=== PATIENT | female | born 1965 | race Caucasian/White ===

== ENCOUNTER 2017-10-11 14:36 | Inpatient (IN) | payer MEDICARE, MEDICAID ==
[~2017-10-11] VITALS: Ht 162.6 cm; Wt 74.4 kg
[2017-10-11] MEDS ORDERED: TRICOR54 MG ORAL (14:47)
[2017-10-11] MEDS ORDERED: SEROQUEL100 MG ORAL (14:47)
[2017-10-11] MEDS ORDERED: ATORVASTATIN CA20 MG ORAL (14:47)
[2017-10-11] MEDS ORDERED: LEVOTHYROXINE75 MCG ORAL (14:47)
[2017-10-11] MEDS ORDERED: GABAPENTIN300 MG ORAL (14:47)
[2017-10-11] MEDS ORDERED: PROPRANOLOL HCL10 MG ORAL (14:47)
[2017-10-11] MEDS ORDERED: ZYPREXA5 MG ORAL (14:47)
[2017-10-11] MEDS ORDERED: OXYBUTYNIN CHLOR5 M1 ORAL (14:47)
[2017-10-11] MEDS ORDERED: BENZTROPINE ME0.5 MG PO (14:47)
[2017-10-11] MEDS ORDERED: DEPAKOTE ER500 MG ORAL (14:47)
[2017-10-11] MEDS ORDERED: METOPROLOL SUCC25 MG ORAL (14:47)
[2017-10-11] MEDS ORDERED: PHENYTOIN SODI100 MG ORAL (14:47)
[2017-10-11] MEDS ORDERED: LORazepam 1mg tab ORAL ONE (15:00)
--- NOTE | 2017-10-11 15:10 | Emergency Room Report ---
History of Present Illness General Chief Complaint: Abdominal Pain Source: Patient, EMS Present Illness HPI Patient presents via BLS after having a seizure earlier today. She is on multiple medications for seizures including gabapentin, Dilantin, Depakote. She 's had a stroke in the past. She complains about a headache that's chronic and abdominal pain which is also chronic. She rates these 5-6 out of 10. She denies taking any medication for them at this time. She denies vomiting, diarrhea, dysuria. She has chronic weakness of the right side. No fevers, chills, dysuria, rashes, extremity pain. She is on seroquel and denies SI or HI. She was sent for evaluation by her psychiatrist for the headache and seizures. Prior craniotomy. Allergies: Coded Allergies: PENICILLINS (Verified Allergy, Unknown, 10/11/17) Patient History Past Medical History: see triage record Social History: Reports: smoking, drug use - see tox Social History Narrative assisted living Reviewed Nursing Documentation: PMH: Agreed; PSxH: Agreed Nursing Documentation-PMH Past Medical History: No History, Except For Hx Hypertension: Yes Hx Seizures: Yes Review of Systems All Other Systems: negative except mentioned in HPI Physical Exam Vital Signs Date Time Temp Pulse Resp B/P (MAP) Pulse Ox O2 Delivery O2 Flow Rate FiO2 10/11/17 14:39 97.9 67 14 118/74 95 Room Air 97.9 Sp02 EP Interpretation: reviewed, normal General Appearance: well appearing, no apparent distress, GCS 15 Head: normocephalic, other - craniotomy L Eyes: bilateral eye normal inspection, bilateral eye PERRL, bilateral eye EOMI ENT: moist mucus membranes Neck: supple, no meningismus Respiratory: lungs clear, normal breath sounds Cardiovascular #1: regular rate, rhythm Cardiovascular #2: 2+ radial (R) Gastrointestinal: normal inspection, normal bowel sounds, non tender, no mass, non-distended Musculoskeletal: back normal, gait/station normal, normal range of motion, other - Contractures right hand Neurologic: alert, oriented x3, DTRs symmetric, sensory intact, speech normal, motor weakness - Right arm and right leg., other - Able to ambulate with assistance however right leg has chronic weakness Psychiatric: mood/affect normal Skin: normal inspection, warm/dry Medical Decision Making Diagnostic Impression: Primary Impression: Uncontrolled seizures Qualified Codes: R56.9 - Unspecified convulsions Additional Impressions: Status post stroke Cocaine abuse UTI (urinary tract infection) Qualified Codes: N30.00 - Acute cystitis without hematuria Intracerebral mass Subtherapeutic phenytoin level ER Course Patient presents after having a seizure. She is on multiple medications at an assisted living facility. I differential includes breakthrough seizure, subtherapeutic anticonvulsants, electrolyte imbalance, brain bleed amongst others. The patient will be evaluated with CT of the head, chest x-ray and labs. A small dose of Ativan will be given to the patient. She will receive IV hydration also. EKG with sinus rhythm low voltage QRS rate of 67. Labs with normal white count , normal electrolytes, pyuria, subtherapeutic Dilantin level and positive tox screen for cocaine. Patient is treated with Dilantin IV. CT of the head reveals a mass in an area where prior surgery occurred with a craniotomy. This was discussed with Dr. Suero who consulted Dr. Vinson who felt that they could manage the patient at our facility here after I suggested the possibility of transferring to higher level of care. Patient improved here. No seizure activity noted. Patient admitted to telemetry under the care of Dr. Vinson. Laboratory Tests Test 10/11/17 15:35 10/11/17 15:50 White Blood Count 5.8 K/UL (4.8-10.8) Red Blood Count 4.43 M/UL (4.20-5.40) Hemoglobin 15.2 G/DL (12.0-16.0) Hematocrit 43.3 % (37.0-47.0) Mean Corpuscular Volume 98 FL (80-99) Mean Corpuscular Hemoglobin 34.4 PG (27.0-31.0) H Mean Corpuscular Hemoglobin Concent 35.2 G/DL (32.0-36.0) Red Cell Distribution Width 11.6 % (11.6-14.8) Platelet Count 188 K/UL (150-450) Mean Platelet Volume 6.4 FL (6.5-10.1) L Neutrophils (%) (Auto) 48.9 % (45.0-75.0) Lymphocytes (%) (Auto) 39.9 % (20.0-45.0) Monocytes (%) (Auto) 7.9 % (1.0-10.0) Eosinophils (%) (Auto) 2.2 % (0.0-3.0) Basophils (%) (Auto) 1.0 % (0.0-2.0) Sodium Level 142 MMOL/L (136-145) Potassium Level 4.0 MMOL/L (3.5-5.1) Chloride Level 105 MMOL/L (98-107) Carbon Dioxide Level 30 MMOL/L (21-32) Anion Gap 7 mmol/L (5-15) Blood Urea Nitrogen 15 mg/dL (7-18) Creatinine 0.6 MG/DL (0.55-1.30) Estimate Glomerular Filtration Rate > 60 mL/min (>60) Glucose Level 107 MG/DL (74-106) H Calcium Level 9.0 MG/DL (8.5-10.1) Total Bilirubin 0.2 MG/DL (0.2-1.0) Aspartate Amino Transferase (AST) 14 U/L (15-37) L Alanine Aminotransferase (ALT) 22 U/L (12-78) Alkaline Phosphatase 51 U/L (46-116) Total Creatine Kinase 35 U/L (26-308) Troponin I 0.000 ng/mL (0.000-0.056) Total Protein 6.9 G/DL (6.4-8.2) Albumin 3.5 G/DL (3.4-5.0) Globulin 3.4 g/dL Albumin/Globulin Ratio 1.0 (1.0-2.7) Thyroid Stimulating Hormone (TSH) 0.556 uiU/mL (0.358-3.740) Salicylates Level 3.7 ug/mL (2.8-20) Acetaminophen Level < 2 MCG/ML (10-30) L Phenytoin (Dilantin) Level 9.8 ug/mL (10-20) L Valproic Acid Level 52 MCG/ML (50-100) Serum Alcohol < 3 mg/dL Urine Color Azucena Urine Appearance Clear Urine pH 8 (4.5-8.0) Urine Specific [place] 1.010 (1.005-1.035) Urine Protein Negative (NEGATIVE) Urine Glucose (UA) Negative (NEGATIVE) Urine Ketones Negative (NEGATIVE) Urine Blood Negative (NEGATIVE) Urine Nitrite Negative (NEGATIVE) Urine Bilirubin Negative (NEGATIVE) Urine Ictotest Negative (NEGATIVE) Urine Urobilinogen Normal MG/DL (0.0-1.0) Urine Leukocyte Esterase 1+ (NEGATIVE) H Urine RBC 0-2 /HPF (0 - 2) Urine WBC 10-15 /HPF (0 - 2) H Urine Squamous Epithelial Cells Moderate /LPF (NONE/OCC) H Urine Bacteria Few /HPF (NONE) Urine Opiates Screen Negative (NEGATIVE) Urine Barbiturates Screen Negative (NEGATIVE) Phencyclidine (PCP) Screen Negative (NEGATIVE) Urine Amphetamines Screen Negative (NEGATIVE) Urine Benzodiazepines Screen Negative (NEGATIVE) Urine Cocaine Screen Positive (NEGATIVE) H Urine Marijuana (THC) Screen Negative (NEGATIVE) EKG Diagnostic Results Rate: normal Rhythm: NSR ST Segments: no acute changes Rhythm Strip Diag. Results EP Interpretation: yes Rhythm: NSR, no PVC's, no ectopy Chest X-Ray Diagnostic Results Chest X-Ray Diagnostic Results : Chest X-Ray Ordered: Yes # of Views/Limited/Complete: 1 View Indication: Other EP Interpretation: Yes Interpretation: no consolidation, no effusion, no pneumothorax Impression: No acute disease Electronically Signed by: Electronically signed by Brayan Mcguire MD CT/MRI/US Diagnostic Results CT/MRI/US Diagnostic Results : Imaging Test Ordered: head Impression Assessment was craniotomy. Around 4 cm mass in the area with his craniomalacia without mass effect. Last Vital Signs Date Time Temp Pulse Resp B/P (MAP) Pulse Ox O2 Delivery O2 Flow Rate FiO2 10/11/17 16:55 98.2 72 16 104/65 99 Room Air 98.2 Status: improved Disposition: ADMITTED INPATIENT Condition: Serious Brayan Mcguire M.D. Oct 11, 2017 15:10
[2017-10-11 15:47] LABS: EOSINOPHILS % (AUTO) 2.2 % (0.0-3.0); HEMATOCRIT 43.3 % (37.0-47.0); HEMOGLOBIN 15.2 G/DL (12.0-16.0); LYMPHOCYTES % (AUTO) 39.9 % (20.0-45.0); MEAN CORPUSCULAR VOLUME 98 FL (80-99); MONOCYTES % (AUTO) 7.9 % (1.0-10.0); NEUTROPHILS % (AUTO) 48.9 % (45.0-75.0); PLATELET COUNT 188 K/UL (150-450); RED BLOOD COUNT 4.43 M/UL (4.20-5.40); RED CELL DISTRIBUTION WIDTH 11.6 % (11.6-14.8); WHITE BLOOD COUNT 5.8 K/UL (4.8-10.8)
[2017-10-11 15:57] LABS: APPEARANCE,URINE CLEAR; BILIRUBIN, URINE NEGATIVE (NEGATIVE); COLOR,URINE AMBER; GLUCOSE, URINE (UA) NEGATIVE (NEGATIVE); KETONES,URINE NEGATIVE (NEGATIVE); LEUKOCYTE ESTERASE ,URINE 1+ (NEGATIVE); NITRITE,URINE NEGATIVE (NEGATIVE); PH,URINE 8 (4.5-8.0); PROTEIN,URINE NEGATIVE (NEGATIVE); UROBILINOGEN,URINE NORMAL MG/DL (0.0-1.0)
[2017-10-11 16:02] LABS: ANION GAP 7 mmol/L (5-15); BLOOD UREA NITROGEN 15 mg/dL (7-18); CARBON DIOXIDE 30 MMOL/L (21-32); CHLORIDE 105 MMOL/L (98-107); CREATININE 0.6 MG/DL (0.55-1.30); SODIUM 142 MMOL/L (136-145)
[2017-10-11 16:14] LABS: ALANINE AMINOTRANSFERASE 22 U/L (12-78); ALBUMIN 3.5 G/DL (3.4-5.0); ALKALINE PHOSPHATASE 51 U/L (46-116); ASPARTATE AMINO TRANSFERASE 14 U/L (15-37); BILIRUBIN,TOTAL 0.2 MG/DL (0.2-1.0); CREATINE KINASE 35 U/L (26-308)
--- NOTE | 2017-10-11 16:36 | Diagnostic Imaging Report ---
EXAM: CT Head Without Intravenous Contrast CLINICAL HISTORY: Seizures TECHNIQUE: Axial computed tomography images of the head/brain without intravenous contrast. CTDI is 70.53 mGy and DLP is 1330 mGy-cm. One or more of the following dose reduction techniques were used: automated exposure control, adjustment of the mA and/or kV according to patient size, use of iterative reconstruction technique. COMPARISON: No relevant prior studies available. FINDINGS: Brain: Left frontoparietal and occipital encephalomalacia. 3.9 x 3.9 x 3.0 cm round heterogeneous mass lesion with coarse calcifications, in the left temporal lobe. No evidence of acute intracranial hemorrhage, mass effect, or midline shift. Ventricles: Compensatory distention of the left lateral ventricle. Mildly distended third ventricle. Bones/joints: Status post left frontotemporal craniotomy. No acute fracture. Soft tissues: Unremarkable. Sinuses: Unremarkable as visualized. No acute sinusitis. Mastoid air cells: Unremarkable as visualized. No mastoid effusion. IMPRESSION: 1. Status post left frontotemporal craniotomy. 2. Left frontoparietal and occipital encephalomalacia, likely post surgical. 3. 3.9 x 3.9 x 3.0 cm round heterogeneous mass lesion with coarse calcifications, in the presumed surgical bed in the left temporal lobe region. [employer] 10/11/17 16:49 Call From Levon Mcguire MD on 10/11 16:43 (-07:00)
[2017-10-11] MEDS ORDERED: cefTRIAXone 1 GM in NS 55 ML IVPB ONE (16:45)
--- NOTE | 2017-10-11 16:47 | Diagnostic Imaging Report ---
EXAM: XR Chest, 1 View CLINICAL HISTORY: Seizures TECHNIQUE: Frontal view of the chest. COMPARISON: No relevant prior studies available. FINDINGS: Lungs: Unremarkable. The lungs appear clear. No confluent pulmonary opacities. Pleural space: Unremarkable. No pneumothorax. Heart: Unremarkable. No cardiomegaly. Mediastinum: Unremarkable. Bones/joints: Unremarkable. Tubes, lines and devices: EKG leads overlie the thorax. IMPRESSION: No acute findings.
[2017-10-11 16:55] VITALS: BP 104/65
[2017-10-11] MEDS ORDERED: Phenytoin 500 MG in NS 110 ML IVPB STA (17:04)
[2017-10-11 18:06] VITALS: BP 115/73
[2017-10-11 20:00] VITALS: BP 119/77
--- NOTE | 2017-10-11 21:46 | History and Physical ---
History of Present Illness General Date patient seen: Oct 11, 2017 Time patient seen: 18:44 Reason for Hospitalization: Abdominal Pain Present Illness HPI 52 yo woman presented to ED after having a seizure earlier today. She is on multiple medications for seizures including gabapentin, Dilantin, Depakote. She 's also had a stroke in the past. She complains about a headache that's chronic and abdominal pain which is also chronic. She rates these 5-6 out of 10. She denies taking any medication for them at this time. She denies vomiting, diarrhea, dysuria. She has chronic weakness of the right side. No fevers, chills, dysuria, rashes, extremity pain. She is on seroquel and denies SI or HI. She was sent for evaluation by her psychiatrist for the headache and seizures. In the ED, a CT noted a large 4x4 cm mass in area of previous craniotomy She was admitted for furthr workup Allergies: Coded Allergies: PENICILLINS (Verified Allergy, Unknown, 10/11/17) Medication History Scheduled Atorvastatin Calcium* (Atorvastatin Calcium*), 20 MG ORAL BEDTIME, (Reported) Benztropine Mesylate* (Cogentin*), 1 MG PO BID, (Reported) Divalproex Sodium* (Depakote Er*), 500 MG ORAL EVERY 12 HOURS, (Reported) Fenofibrate (Fenofibrate), 54 MG ORAL DAILY, (Reported) Gabapentin* (Gabapentin*), 300 MG ORAL DAILY, (Reported) Levothyroxine Sodium* (Levothyroxine Sodium*), 75 MCG ORAL DAILY, (Reported) Metoprolol Succinate* (Metoprolol Succinate*), 25 MG ORAL DAILY, (Reported) Olanzapine* (Zyprexa*), 5 MG ORAL BID, (Reported) Oxybutynin Chloride (Oxybutynin Chloride), 5 MG ORAL BID, (Reported) Phenytoin Sodium Extended* (Phenytoin Sodium Extended*), 200 MG ORAL TWICE A DAY , (Reported) Propranolol Hcl* (Inderal*), 10 MG ORAL BID, (Reported) Quetiapine Fumarate* (Seroquel*), 300 MG ORAL TWICE A DAY, (Reported) Patient History History Provided By: Patient, Medical Record, PMD Healthcare decision maker Resuscitation status Advanced Directive on File Review of Systems Constitutional: Reports: malaise, weakness Eye: Reports: no symptoms ENT: Reports: no symptoms Respiratory: Reports: no symptoms Cardiovascular: Reports: no symptoms Gastrointestinal: Reports: no symptoms Genitourinary: Reports: no symptoms Musculoskeletal: Reports: no symptoms Skin: Reports: no symptoms Psychiatric: Reports: see HPI Neurological: Reports: see HPI, headache, focal weakness Endocrine: Reports: no symptoms Hematologic/Lymphatic: Reports: no symptoms All Other Systems: negative except mentioned in HPI Physical Exam General Appearance: no apparent distress, lethargic Lines, tubes and drains: peripheral HEENT: normocephalic, atraumatic Neck: non-tender Respiratory/Chest: chest wall non-tender, lungs clear Cardiovascular/Chest: normal peripheral pulses, normal rate, no JVD Abdomen: normal bowel sounds, non tender Extremities: normal range of motion, non-tender Skin Exam: normal pigmentation, warm/dry 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 normal, motor weakness Lymphatic: anterior cervical, posterior cervical (L) Musculoskeletal: atrophy Last 24 Hour Vital Signs Date Time Temp Pulse Resp B/P (MAP) Pulse Ox O2 Delivery O2 Flow Rate FiO2 10/11/17 18:06 97.9 72 20 115/73 (87) 96 97.9 10/11/17 17:50 98.2 72 16 104/65 99 Room Air 98.2 10/11/17 16:55 98.2 72 16 104/65 99 Room Air 98.2 10/11/17 14:39 97.9 67 14 118/74 95 Room Air 97.9 Laboratory Tests Test 10/11/17 15:35 10/11/17 15:50 White Blood Count 5.8 K/UL (4.8-10.8) Red Blood Count 4.43 M/UL (4.20-5.40) Hemoglobin 15.2 G/DL (12.0-16.0) Hematocrit 43.3 % (37.0-47.0) Mean Corpuscular Volume 98 FL (80-99) Mean Corpuscular Hemoglobin 34.4 PG (27.0-31.0) H Mean Corpuscular Hemoglobin Concent 35.2 G/DL (32.0-36.0) Red Cell Distribution Width 11.6 % (11.6-14.8) Platelet Count 188 K/UL (150-450) Mean Platelet Volume 6.4 FL (6.5-10.1) L Neutrophils (%) (Auto) 48.9 % (45.0-75.0) Lymphocytes (%) (Auto) 39.9 % (20.0-45.0) Monocytes (%) (Auto) 7.9 % (1.0-10.0) Eosinophils (%) (Auto) 2.2 % (0.0-3.0) Basophils (%) (Auto) 1.0 % (0.0-2.0) Sodium Level 142 MMOL/L (136-145) Potassium Level 4.0 MMOL/L (3.5-5.1) Chloride Level 105 MMOL/L (98-107) Carbon Dioxide Level 30 MMOL/L (21-32) Anion Gap 7 mmol/L (5-15) Blood Urea Nitrogen 15 mg/dL (7-18) Creatinine 0.6 MG/DL (0.55-1.30) Estimat Glomerular Filtration Rate > 60 mL/min (>60) Glucose Level 107 MG/DL (74-106) H Calcium Level 9.0 MG/DL (8.5-10.1) Total Bilirubin 0.2 MG/DL (0.2-1.0) Aspartate Amino Transf (AST/SGOT) 14 U/L (15-37) L Alanine Aminotransferase (ALT/SGPT) 22 U/L (12-78) Alkaline Phosphatase 51 U/L (46-116) Total Creatine Kinase 35 U/L (26-308) Troponin I 0.000 ng/mL (0.000-0.056) Total Protein 6.9 G/DL (6.4-8.2) Albumin 3.5 G/DL (3.4-5.0) Globulin 3.4 g/dL Albumin/Globulin Ratio 1.0 (1.0-2.7) Thyroid Stimulating Hormone (TSH) 0.556 uiU/mL (0.358-3.740) Salicylates Level 3.7 ug/mL (2.8-20) Acetaminophen Level < 2 MCG/ML (10-30) L Phenytoin (Dilantin) Level 9.8 ug/mL (10-20) L Valproic Acid (Depakene) Level 52 MCG/ML (50-100) Serum Alcohol < 3 mg/dL Urine Color Azucena Urine Appearance Clear Urine pH 8 (4.5-8.0) Urine Specific [place] 1.010 (1.005-1.035) Urine Protein Negative (NEGATIVE) Urine Glucose (UA) Negative (NEGATIVE) Urine Ketones Negative (NEGATIVE) Urine Blood Negative (NEGATIVE) Urine Nitrite Negative (NEGATIVE) Urine Bilirubin Negative (NEGATIVE) Urine Ictotest Negative (NEGATIVE) Urine Urobilinogen Normal MG/DL (0.0-1.0) Urine Leukocyte Esterase 1+ (NEGATIVE) H Urine RBC 0-2 /HPF (0 - 2) Urine WBC 10-15 /HPF (0 - 2) H Urine Squamous Epithelial Cells Moderate /LPF (NONE/OCC) H Urine Bacteria Few /HPF (NONE) Urine Opiates Screen Negative (NEGATIVE) Urine Barbiturates Screen Negative (NEGATIVE) Phencyclidine (PCP) Screen Negative (NEGATIVE) Urine Amphetamines Screen Negative (NEGATIVE) Urine Benzodiazepines Screen Negative (NEGATIVE) Urine Cocaine Screen Positive (NEGATIVE) H Urine Marijuana (THC) Screen Negative (NEGATIVE) Height (Feet): 5 Height (Inches): 4.00 Weight (Pounds): 160 Assessment/Plan Status: deteriorating Status Narrative 52 yo woman with recurrent intracranial mass and seizures Assessment/Plan Admit to inpatient Neuro checks Neurology consult for seizures- continue Depakote Psychiatry consult; continue home meds for now check TSH given h/o hypothyroidism; continue levothyroxine continue atorvastatin continue metoprolol for HTN; goal SBP<160 No significant edema on CT so will hold dexamethasone for now Will need transfer to higher level of care given intracranial mass DVT Prophylaxis: SCD's Code Status: Full Hospital Classification declaration: Based on this initial evaluation and depending on the patient's clinical course I anticipate that this patient will require hospitalization for at least 2-3 days Disposition: Once the patient is stable to leave the hospital I anticipate the patient will likely be discharged to the following environment: Home with HH vs SNF I spent 70 minutes on this patients car and 36 minutes was dedicated to counseling and care coordination Time of note may not reflect time of encounter John Suero M.D. Oct 11, 2017 21:46
[2017-10-11] MEDS: Depakote ER 500mg tab ORAL SCH (22:15)
[2017-10-11] MEDS ORDERED: Norco 5mg/325mg tab ORAL PRN (22:15)
[2017-10-12] VITALS: BP 121/60
[2017-10-12 04:00] VITALS: BP 134/68
[2017-10-12 07:27] LABS: BASOPHILS % (AUTO) 0.6 % (0.0-2.0); EOSINOPHILS % (AUTO) 2.4 % (0.0-3.0); HEMATOCRIT 41.9 % (37.0-47.0); HEMOGLOBIN 14.4 G/DL (12.0-16.0); LYMPHOCYTES % (AUTO) 38.9 % (20.0-45.0); MEAN CORPUSCULAR VOLUME 96 FL (80-99); NEUTROPHILS % (AUTO) 48.1 % (45.0-75.0); PLATELET COUNT 191 K/UL (150-450); RED BLOOD COUNT 4.36 M/UL (4.20-5.40); RED CELL DISTRIBUTION WIDTH 11.7 % (11.6-14.8); WHITE BLOOD COUNT 5.6 K/UL (4.8-10.8)
[2017-10-12 08:00] VITALS: BP 110/70
[2017-10-12] MEDS: Phenytoin 100mg cap ORAL SCH ×2 (08:21→17:06)
[2017-10-12] MEDS: Depakote ER 500mg tab ORAL SCH ×2 (08:21→20:43)
[2017-10-12] MEDS: OLANZapine 2.5mg tab ORAL SCH ×2 (08:22→17:04)
[2017-10-12] MEDS: Metoprolol Succinate XL 25mg tab ORAL SCH (08:22)
[2017-10-12] MEDS: Propranolol 10mg tab ORAL SCH ×2 (08:23→17:02)
[2017-10-12] MEDS: Oxybutynin 5mg tab ORAL SCH ×2 (08:23→17:06)
[2017-10-12 12:00] VITALS: BP 108/61
--- NOTE | 2017-10-12 13:51 | Cardiology Report ---
APPROVED REPORT EKG Measurement Heart [id number] Normal sinus rhythm Low voltage QRS Borderline ECG
[2017-10-12 16:00] VITALS: BP 102/59
--- NOTE | 2017-10-12 18:26 | General Progress Note ---
Assessment/Plan Status: stable, unchanged Status Narrative 52 yo woman with intracranial mass and seizures Assessment/Plan continue neuro checks Neurology consult for seizures- continue Depakote Psychiatry consult; continue home meds for now check TSH given h/o hypothyroidism; continue levothyroxine continue atorvastatin continue metoprolol for HTN; goal SBP<160 No significant edema on CT so will hold dexamethasone for now Will need transfer to higher level of care given intracranial mass DVT Prophylaxis: scd Code status: full Hospital Classification declaration: Based on this initial evaluation, and depending on the patient's clinical course, I anticipate that this patient will require hospitalization for 2-3 days. Disposition: Once the patient is stable to leave the hospital, I anticipate the patient will likely be discharged to the following environment:Home with HH vs SNF I spent 45 minutes on this patient's case, and 23 minutes was dedicated to counseling and/or care coordination. Time of note may not reflect time of encounter. Subjective Date patient seen: Oct 12, 2017 Time patient seen: 17:00 ROS Limited/Unobtainable: No Constitutional: Reports: no symptoms HEENT: Reports: no symptoms Cardiovascular: Reports: no symptoms Respiratory: Reports: no symptoms Gastrointestinal/Abdominal: Reports: no symptoms Genitourinary: Reports: no symptoms Neurologic/Psychiatric: Reports: headache, pre-existing deficit Endocrine: Reports: no symptoms Hematologic/Lymphatic: Reports: no symptoms Allergies: Coded Allergies: PENICILLINS (Verified Allergy, Unknown, 10/11/17) All Systems: reviewed and negative except above Subjective No acute events overnight Chart reviewed by me Patient somnolent but more awake today Headache improved No further seizures Objective Last 24 Hour Vital Signs Date Time Temp Pulse Resp B/P (MAP) Pulse Ox O2 Delivery O2 Flow Rate FiO2 10/12/17 17:02 77 102/59 10/12/17 16:00 97.5 76 18 102/59 (73) 95 97.5 10/12/17 16:00 77 10/12/17 12:00 97.1 71 18 108/61 (77) 96 97.1 10/12/17 12:00 74 10/12/17 09:00 Room Air 10/12/17 08:23 78 110/70 10/12/17 08:22 78 110/70 10/12/17 08:00 97.0 75 18 110/70 (83) 95 97.0 10/12/17 08:00 84 10/12/17 04:00 78 10/12/17 04:00 97.8 63 18 134/68 (90) 96 97.8 10/12/17 00:00 97.7 83 20 121/60 (80) 95 97.7 10/12/17 00:00 82 10/11/17 21:51 Room Air 10/11/17 20:00 85 10/11/17 20:00 98.1 80 20 119/77 (91) 95 98.1 Intake and Output 10/11/17 10/12/17 19:00 07:00 Intake Total 480 ml Balance 480 ml Intake Oral 480 ml # Voids 1 1 Laboratory Tests 10/12/17 06:12: White Blood Count 5.6, Red Blood Count 4.36, Hemoglobin 14.4, Hematocrit 41.9, Mean Corpuscular Volume 96, Mean Corpuscular Hemoglobin 33.2H, Mean Corpuscular Hemoglobin Concent 34.5, Red Cell Distribution Width 11.7, Platelet Count 191, Mean Platelet Volume 7.1, Neutrophils (%) (Auto) 48.1, Lymphocytes (%) (Auto) 38.9, Monocytes (%) (Auto) 10.0, Eosinophils (%) (Auto) 2.4, Basophils (%) (Auto ) 0.6, Magnesium Level 1.9, Pro-B-Type Natriuretic Peptide 163H Height (Feet): 5 Height (Inches): 4.00 Weight (Pounds): 151 General Appearance: no apparent distress, lethargic EENT: PERRL/EOMI, normal ENT inspection Neck: non-tender, supple Cardiovascular: normal peripheral pulses, normal rate Respiratory/Chest: chest wall non-tender, lungs clear Abdomen: normal bowel sounds, non tender, soft Pelvis: normal external exam Extremities: normal range of motion, non-tender Edema: trace edema 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 Oct 12, 2017 18:26
[2017-10-12 20:00] VITALS: BP 97/55
[2017-10-13] VITALS: BP 92/63
[2017-10-13 04:00] VITALS: BP 100/60
[2017-10-13 08:00] VITALS: BP 129/69
[2017-10-13] MEDS: Oxybutynin 5mg tab ORAL SCH ×2 (10:07→18:17)
[2017-10-13] MEDS: Propranolol 10mg tab ORAL SCH ×2 (10:08→18:00)
[2017-10-13] MEDS: OLANZapine 2.5mg tab ORAL SCH ×2 (10:08→18:00)
[2017-10-13] MEDS: Metoprolol Succinate XL 25mg tab ORAL SCH (10:09)
[2017-10-13] MEDS: Depakote ER 500mg tab ORAL SCH ×3 (10:09→21:18)
[2017-10-13] MEDS: Phenytoin 100mg cap ORAL SCH ×2 (10:10→21:17)
--- NOTE | 2017-10-13 10:48 | Consultation ---
History of Present Illness General Date patient seen: Oct 13, 2017 Chief Complaint: Abdominal Pain Present Illness HPI 52 yo woman presented to ED for seizures including gabapentin, Dilantin, Depakote. the pt is anxious. the pt was able to provide the hx. the pt wanted to leave ama. Allergies: Coded Allergies: PENICILLINS (Verified Allergy, Unknown, 10/11/17) Medication History Scheduled Atorvastatin Calcium* (Atorvastatin Calcium*), 20 MG ORAL BEDTIME, (Reported) Benztropine Mesylate* (Cogentin*), 1 MG PO BID, (Reported) Divalproex Sodium* (Depakote Er*), 500 MG ORAL EVERY 12 HOURS, (Reported) Fenofibrate (Fenofibrate), 54 MG ORAL DAILY, (Reported) Gabapentin* (Gabapentin*), 300 MG ORAL DAILY, (Reported) Levothyroxine Sodium* (Levothyroxine Sodium*), 75 MCG ORAL DAILY, (Reported) Metoprolol Succinate* (Metoprolol Succinate*), 25 MG ORAL DAILY, (Reported) Olanzapine* (Zyprexa*), 5 MG ORAL BID, (Reported) Oxybutynin Chloride (Oxybutynin Chloride), 5 MG ORAL BID, (Reported) Phenytoin Sodium Extended* (Phenytoin Sodium Extended*), 200 MG ORAL TWICE A DAY , (Reported) Propranolol Hcl* (Inderal*), 10 MG ORAL BID, (Reported) Quetiapine Fumarate* (Seroquel*), 300 MG ORAL TWICE A DAY, (Reported) Patient History History Provided By: Patient, Medical Record, PMD Healthcare decision maker Resuscitation status Full Code Advanced Directive on File No Review of Systems Psychiatric: Reports: prior hx, anxiety, depressed feelings Physical Exam General Appearance: no apparent distress, alert Neurologic: oriented x 3, responsive, depressed affect Last 24 Hour Vital Signs Date Time Temp Pulse Resp B/P (MAP) Pulse Ox O2 Delivery O2 Flow Rate FiO2 10/13/17 10:09 79 129/69 10/13/17 10:08 79 129/69 10/13/17 04:00 97.6 75 20 100/60 (73) 96 97.6 10/13/17 04:00 76 10/13/17 00:00 73 10/13/17 00:00 98.0 82 20 92/63 (73) 96 98.0 10/12/17 21:00 Room Air 10/12/17 20:00 98.0 83 20 97/55 (69) 95 98.0 10/12/17 20:00 80 10/12/17 17:02 77 102/59 10/12/17 16:00 97.5 76 18 102/59 (73) 95 97.5 10/12/17 16:00 77 10/12/17 12:00 97.1 71 18 108/61 (77) 96 97.1 10/12/17 12:00 74 Intake and Output 10/12/17 10/13/17 19:00 07:00 Intake Total 360 ml Balance 360 ml Intake Oral 360 ml # Voids 3 2 # Bowel Movements 1 Height (Feet): 5 Height (Inches): 4.00 Weight (Pounds): 151 Medications Current Medications Medications (Trade) Dose Ordered Sig/[place] Route PRN Reason Start Time Stop Time Status Last Admin Dose Admin Acetaminophen (Tylenol) 650 mg Q4H PRN ORAL Mild Pain/Temp > 100.5 10/11/17 22:15 11/10/17 22:14 Acetaminophen/ Hydrocodone Bitart ([place] 5/325) 1 tab Q6H PRN ORAL For Pain 10/11/17 22:15 10/18/17 22:14 Atorvastatin Calcium (Lipitor) 20 mg BEDTIME ORAL 10/13/17 21:00 11/11/17 20:59 Divalproex Sodium (Depakote ER) 500 mg EVERY 12 HOURS ORAL 10/11/17 22:15 11/10/17 22:14 10/13/17 10:09 Fenofibrate (Tricor) 54 mg DAILY ORAL 10/12/17 09:00 11/11/17 08:59 10/13/17 10:10 Gabapentin (Neurontin) 300 mg DAILY ORAL 10/12/17 09:00 11/11/17 08:59 10/13/17 10:09 Levothyroxine Sodium (Synthroid) 75 mcg DAILY@0630 ORAL 10/12/17 06:30 11/11/17 06:29 10/13/17 06:14 Metoprolol Succinate (Toprol XL) 25 mg DAILY ORAL 10/12/17 09:00 11/11/17 08:59 10/13/17 10:09 Olanzapine (ZyPREXA) 5 mg BID ORAL 10/12/17 09:00 11/11/17 08:59 10/13/17 10:08 Oxybutynin Chloride (Ditropan) 5 mg BID ORAL 10/12/17 09:00 11/11/17 08:59 10/13/17 10:07 Phenytoin (Dilantin) 200 mg TWICE A DAY ORAL 10/12/17 09:00 11/11/17 08:59 10/13/17 10:10 Propranolol HCl (Inderal) 10 mg BID ORAL 10/12/17 09:00 11/11/17 08:59 10/13/17 10:08 Quetiapine Fumarate (SEROquel) 300 mg TWICE A DAY ORAL 10/12/17 09:00 11/11/17 08:59 10/13/17 10:08 Assessment/Plan Status: stable Assessment/Plan Bipolar d/o cont seroquel not a dts Regulo Grant MD Oct 13, 2017 10:48
--- NOTE | 2017-10-13 11:23 | Consultation ---
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 She also has a H/O seizures since about the same time. She cannot describe her seizures. She just passes out. ON EXAM: Disoriented to place and exact date. M - 3/3-0, /3 - 1, 03 -3. Unable to recall presidents. Anterior > posterior aphasia Right VF deficit Right VII central R-UE plegia R-LE paresis Pathologically brisk right DTRs with extensor plantar on right . Right hemisensory deficit Right paretic gait. IMPRESSION: Focal seizures with secondary generalization. Breakthrough seizures due to low anti-seizure medicine levels, alcohol, cocaine and meth use. Left temporal possible meningioma. REC: 1. Seizure hygiene. 2. Stop ETOH and illicit drugs. 3. Increase Depakote to 750 mg q 12 H. 4. Change Dilantin to 400 mg q HS. Cristian Anderson M.D., M.S.P.H. CRISTIAN ANDERSON Oct 13, 2017 11:23
[2017-10-13 12:00] VITALS: BP 111/66
[2017-10-13 16:00] VITALS: BP 132/76
--- NOTE | 2017-10-13 17:30 | Consultation ---
DATE OF CONSULTATION: 10/13/2017 NEUROLOGY CONSULTATION CONSULTING PHYSICIAN: Cristian Anderson M.D. REQUESTING PHYSICIAN: Sole Vinson M.D. HISTORY: Ms. Vijaya Bailon is a 52-year-old, right-handed, lady, who has history of head trauma at age 25 when a viridiana was inserted into her brain. She had surgery for that and since then she has also had a seizure disorder. She cannot describe her seizures, but states that she passes out and has been told that she has abnormal movements. Her last seizure was a few days ago. She cannot tell me when she had a seizure prior to that. She has not noticed any new neurological symptoms recently, but she has been having significant problems with expressing herself and in addition has right-sided weakness ever since she had her head injury. PAST HISTORY: Significant for head trauma when she was age 25, following which she needed surgery, seizure disorder, and high blood pressure. FAMILY HISTORY: Nothing significant with no family history of seizures. PERSONAL HISTORY: Home: She lives in a board and fpc. 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 Habits: She smokes a few cigarettes every day. She drinks about 3-4 alcoholic drinks in a month. She consumes cocaine and meth when she can get it. PRESENT MEDICATIONS: Include atorvastatin, fenofibrate, Neurontin 300 mg daily, Toprol, Zyprexa, Ditropan, Dilantin 200 mg twice a day, propranolol, Seroquel 300 mg twice a day, Synthroid, Depakote ER 500 mg every 12 hours, Tylenol p.r.n., and Moro p.r.n. PHYSICAL EXAMINATION: GENERAL: She is a well-developed, well-nourished, pleasant lady, lying in bed, in no acute distress. VITAL SIGNS: Pulse 79/minute, blood pressure 129/69 mmHg, respirations 20/minute, and temperature 97.6 degrees Fahrenheit. HEAD: Normocephalic with left temporoparietal craniotomy defect. EENT: Examination benign. NECK: No neck rigidity was observed. NEUROLOGICAL EXAMINATION: MENTAL STATUS EXAMINATION: She was awake and alert. She was oriented to self, hospital, and September 2017. She did not know the name of the hospital or the exact date. She was able to recall 3/3 words immediately, but could only remember 1/3 words in 1 minute and 0/3 words in 3 minutes. She was unable to tell me who the present president was and who prior presidents were. Her mathematical skills were impaired. Her visuospatial function was also impaired. SPEECH: She had moderate dysarthria. LANGUAGE: She had an anterior greater than posterior aphasia and significant anomia. CRANIAL NERVE EXAMINATION: II: She had a right visual field cut on confrontation testing. III, IV & : External ocular movements were full and the pupils 3 mm in diameter, equal, round, regular, and reactive to light. V: She had normal facial sensations and the temporales, masseters, and pterygoids functioned normally. VII: She had right VII central facial paresis. VIII: She was able to hear well bilaterally and had no nystagmus. IX: The palate moved symmetrically on phonation. X: She had no hoarseness of voice. XI: The sternocleidomastoids and trapezii functioned normally. XII: The tongue was in the midline without any fasciculations or atrophy. MOTOR SYSTEM: The tone was increased with spasticity on the right side and was normal on the left side. Examination of muscle mass revealed wasting of the right upper and lower extremities. Examination of power revealed G 5/5 power on the left side. On the right side, she had G 0/5 power in the upper extremity; G 4/5 in the quadriceps, hamstrings, and iliopsoas; G 1/5 in the ankle dorsiflexors and plantar flexors, and toe flexors and toe extensors. SENSORY EXAMINATION: She complained of altered sensations over her entire right body. REFLEXES: 3+ on the right and 2+ on the left at the biceps, triceps, brachioradialis, and knees; 2++ on the right and 1+ on the left at the ankles. The plantar response was extensor on the right and flexor on the left. COORDINATION: She performed well on [id number] and [id number] testing on the left side. She was unable to perform on the right side. STANCE: She stood up with support on the left side. GAIT: She walked with support on the left side with a right hemiparetic gait. DIAGNOSTIC IMPRESSION: 1. Ms. Vijaya Bailon is a 52-year-old, right-handed, lady, with a history of head trauma at age 25, when a viridiana was inserted into her left buddhism. She needed surgery for that and has since had seizures. She is unable to describe the seizures well, however, they most probably do become generalized seizures frequently. 2. On neurological examination, at this time, she is disoriented to place and exact date, has problems with recent and remote memory, visuospatial function, and higher cognitive function. She has an anterior greater than posterior aphasia, right visual field deficit, right VII central facial paresis, right upper extremity plegia, right lower extremity paresis, right hemisensory deficit, pathologically brisk right deep tendon reflexes with extensor plantar response on the right side, and right hemiparetic gait. 3. The CT scan of the brain without contrast reveals a significant amount of encephalomalacia in the left frontotemporoparietal area and in addition, she also has a moderate-sized mass in the left temporal area, most probably a meningioma. 4. Laboratory data reveal a relatively normal CBC, relatively normal chemistry panel, normal TSH, mildly abnormal urinalysis with 1+ leukocyte esterase, 0-2 red blood cells, and 10-15 white blood cells per high-power field. Her toxicology screen is positive for cocaine. She also has a subtherapeutic phenytoin level at 9.8 and borderline therapeutic valproic acid level at 52. 5. The patient's history and neurological examination are most compatible with possible focal seizures with secondary generalization. 6. The breakthrough seizures are most probably due to low antiseizure medicine levels and in addition, the use of alcohol, cocaine, and methamphetamine. 7. The left temporal mass is most probably a meningioma. RECOMMENDATIONS: 1. Agree with management thus far. 2. The patient was instructed on the basics of seizure hygiene. 3. She was told to stop using alcohol, tobacco, and illicit drugs. 4. Her dose of Depakote should be increased to 750 mg q 12 hours. 5. Dilantin should be changed to 400 mg to be taken at bedtime. 6. The patient should be observed and depending on how she fares, further recommendations will be given. Thank you for entrusting me with the care of Ms. Bailon. I shall follow her with you. Cristian Anderson M.D., M.S.P.H. DR: Bhaskar JOB#: [id number]
--- NOTE | 2017-10-13 17:52 | General Progress Note ---
Assessment/Plan Status: unchanged Assessment/Plan continue neuro checks Neurology consulted for seizures- continue Depakote Psychiatry consult; continue home meds for now check TSH given h/o hypothyroidism; continue levothyroxine continue atorvastatin continue metoprolol for HTN; goal SBP<160 No significant edema on CT so will hold dexamethasone for now May need transfer to higher level of care given intracranial mass DVT Prophylaxis: scd Code status: full Hospital Classification declaration: Based on this initial evaluation, and depending on the patient's clinical course, I anticipate that this patient will require hospitalization for 2-3 days. Disposition: Once the patient is stable to leave the hospital, I anticipate the patient will likely be discharged to the following environment:Home with HH vs SNF I spent 45 minutes on this patient's case, and 23 minutes was dedicated to counseling and/or care coordination. Time of note may not reflect time of encounter. Subjective Date patient seen: Oct 13, 2017 Time patient seen: 12:25 ROS Limited/Unobtainable: No Constitutional: Reports: no symptoms HEENT: Reports: no symptoms Cardiovascular: Reports: no symptoms Respiratory: Reports: no symptoms Gastrointestinal/Abdominal: Reports: nausea, vomiting Genitourinary: Reports: no symptoms Neurologic/Psychiatric: Reports: headache Endocrine: Reports: no symptoms Hematologic/Lymphatic: Reports: no symptoms Allergies: Coded Allergies: PENICILLINS (Verified Allergy, Unknown, 10/11/17) All Systems: reviewed and negative except above Subjective No acute events overnight Chart reviewed by me Patient having N/V this afternoon after lunch Headache recurred No further seizures Objective Last 24 Hour Vital Signs Date Time Temp Pulse Resp B/P (MAP) Pulse Ox O2 Delivery O2 Flow Rate FiO2 10/13/17 12:00 97.7 78 20 111/66 (81) 99 97.7 10/13/17 12:00 80 10/13/17 10:09 79 129/69 10/13/17 10:08 79 129/69 10/13/17 09:00 Room Air 10/13/17 08:00 97.5 79 20 129/69 (89) 97 97.5 10/13/17 08:00 79 10/13/17 04:00 97.6 75 20 100/60 (73) 96 97.6 10/13/17 04:00 76 10/13/17 00:00 73 10/13/17 00:00 98.0 82 20 92/63 (73) 96 98.0 10/12/17 21:00 Room Air 10/12/17 20:00 98.0 83 20 97/55 (69) 95 98.0 10/12/17 20:00 80 Intake and Output 10/12/17 10/13/17 19:00 07:00 Intake Total 360 ml Balance 360 ml Intake Oral 360 ml # Voids 3 2 # Bowel Movements 1 Height (Feet): 5 Height (Inches): 4.00 Weight (Pounds): 151 General Appearance: WD/WN, moderate distress, other - retching EENT: PERRL/EOMI Neck: non-tender Cardiovascular: normal peripheral pulses, normal rate, regular rhythm Respiratory/Chest: chest wall non-tender, lungs clear Abdomen: normal bowel sounds, non tender, soft Pelvis: normal external exam Extremities: normal range of motion, non-tender Edema: no edema noted Arm (L), no edema noted Arm (R) Edema: trace edema Neurologic: 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 Oct 13, 2017 17:52
[2017-10-13 20:00] VITALS: BP 103/57
[2017-10-13] MEDS: Atorvastatin 20mg tab ORAL SCH (21:17)
[2017-10-14] VITALS (7 sets, daily range): BP systolic 84–119; BP diastolic 50–79
[2017-10-14] MEDS: Depakote ER 500mg tab ORAL SCH ×2 (08:13→20:09)
[2017-10-14] MEDS: Oxybutynin 5mg tab ORAL SCH ×2 (08:14→17:21)
[2017-10-14] MEDS: Propranolol 10mg tab ORAL SCH ×2 (08:14→17:22)
[2017-10-14] MEDS: Metoprolol Succinate XL 25mg tab ORAL SCH (08:16)
[2017-10-14] MEDS: OLANZapine 2.5mg tab ORAL SCH (08:17)
--- NOTE | 2017-10-14 13:16 | General Progress Note ---
Assessment/Plan Status: unchanged Assessment/Plan continue neuro checks Neurology consulted for seizures- continue Depakote at increased dose Psychiatry consult; continue home meds for now check TSH given h/o hypothyroidism; continue levothyroxine continue atorvastatin continue metoprolol for HTN; goal SBP<160 No significant edema on CT so will hold dexamethasone for now May need transfer to higher level of care given intracranial mass- but stable and no signs of shift or significant edema- likely menigioma DVT Prophylaxis: scd's Code status: full Hospital Classification declaration: Based on this initial evaluation, and depending on the patient's clinical course, I anticipate that this patient will require hospitalization for 2-3 days. Disposition: Once the patient is stable to leave the hospital, I anticipate the patient will likely be discharged to the following environment:Home with HH vs SNF I spent 45 minutes on this patient's case, and 23 minutes was dedicated to counseling and/or care coordination. Time of note may not reflect time of encounter. Subjective Date patient seen: Oct 14, 2017 Time patient seen: 13:19 ROS Limited/Unobtainable: No Constitutional: Reports: no symptoms HEENT: Reports: no symptoms Cardiovascular: Reports: no symptoms Respiratory: Reports: no symptoms Gastrointestinal/Abdominal: Reports: nausea, poor appetite Genitourinary: Reports: no symptoms Neurologic/Psychiatric: Reports: headache Endocrine: Reports: no symptoms Hematologic/Lymphatic: Reports: no symptoms Allergies: Coded Allergies: PENICILLINS (Verified Allergy, Unknown, 10/11/17) All Systems: reviewed and negative except above Subjective No acute events overnight Chart reviewed by me Patient with continued headache N/V improved No further seizures Objective Last 24 Hour Vital Signs Date Time Temp Pulse Resp B/P (MAP) Pulse Ox O2 Delivery O2 Flow Rate FiO2 10/14/17 11:37 97.9 81 18 107/70 (82) 96 97.9 10/14/17 09:00 Room Air 10/14/17 08:14 76 95/60 10/14/17 08:00 85 10/14/17 08:00 96.4 76 18 95/60 (72) 93 96.4 10/14/17 04:00 76 10/14/17 04:00 97.2 77 17 84/62 (69) 94 97.2 10/14/17 00:00 98.0 71 16 119/65 (83) 98 98.0 10/14/17 00:00 74 10/13/17 21:00 Room Air 10/13/17 20:00 80 10/13/17 20:00 97.5 81 17 103/57 (72) 94 97.5 10/13/17 18:00 65 102/68 10/13/17 16:00 97.0 90 20 132/76 (94) 84 97.0 10/13/17 16:00 75 Intake and Output 10/13/17 10/14/17 19:00 07:00 Intake Total 720 ml Balance 720 ml Intake Oral 720 ml # Voids 2 2 Height (Feet): 5 Height (Inches): 4.00 Weight (Pounds): 151 General Appearance: no apparent distress, alert, lethargic EENT: PERRL/EOMI, normal ENT inspection Neck: non-tender, supple, normal inspection Cardiovascular: normal peripheral pulses, normal rate, regular rhythm Respiratory/Chest: chest wall non-tender, lungs clear Abdomen: normal bowel sounds, non tender, soft Pelvis: normal external exam Extremities: normal range of motion, non-tender Edema: no edema noted Arm (L), no edema noted Arm (R) 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 Oct 14, 2017 13:16
--- NOTE | 2017-10-14 14:30 | General Progress Note ---
Assessment/Plan Assessment/Plan Bipolar d/o cont seroquel not a dts dc zyprexa Subjective Date patient seen: Oct 14, 2017 Neurologic/Psychiatric: Reports: anxiety, depressed, emotional problems Allergies: Coded Allergies: PENICILLINS (Verified Allergy, Unknown, 10/11/17) Objective Last 24 Hour Vital Signs Date Time Temp Pulse Resp B/P (MAP) Pulse Ox O2 Delivery O2 Flow Rate FiO2 10/14/17 12:00 78 10/14/17 11:37 97.9 81 18 107/70 (82) 96 97.9 10/14/17 09:00 Room Air 10/14/17 08:14 76 95/60 10/14/17 08:00 85 10/14/17 08:00 96.4 76 18 95/60 (72) 93 96.4 10/14/17 04:00 76 10/14/17 04:00 97.2 77 17 84/62 (69) 94 97.2 10/14/17 00:00 98.0 71 16 119/65 (83) 98 98.0 10/14/17 00:00 74 10/13/17 21:00 Room Air 10/13/17 20:00 80 10/13/17 20:00 97.5 81 17 103/57 (72) 94 97.5 10/13/17 18:00 65 102/68 10/13/17 16:00 97.0 90 20 132/76 (94) 84 97.0 10/13/17 16:00 75 Intake and Output 10/13/17 10/14/17 19:00 07:00 Intake Total 720 ml Balance 720 ml Intake Oral 720 ml # Voids 2 2 Height (Feet): 5 Height (Inches): 4.00 Weight (Pounds): 151 General Appearance: no apparent distress, alert Neurologic: alert, depressed affect Regulo Grant MD Oct 14, 2017 14:30
--- NOTE | 2017-10-14 17:08 | Neurology Progress Note ---
Interim History Interim History Interim History Ms. Bailon feels well. She feels she is back to her normal self. She has had no further seizures. She continues to be cognitively impoverished. She continues to have an aphasia. Objective Physical Exam Last Vital Signs Date Time Temp Pulse Resp B/P (MAP) Pulse Ox O2 Delivery O2 Flow Rate FiO2 10/14/17 16:00 83 10/14/17 15:25 98.6 18 113/79 (90) 98 98.6 10/14/17 09:00 Room Air Neurologic Exam Objective PHYSICAL EXAMINATION: GENERAL: She is a well-developed, well-nourished, pleasant lady, sitting up at the edge of her bed, in no acute distress. HEAD: Normocephalic with left temporoparietal craniotomy defect. EENT: Examination benign. NECK: No neck rigidity was observed. NEUROLOGICAL EXAMINATION: MENTAL STATUS EXAMINATION: She was awake and alert. She was oriented to self, hospital, and September 2017. She did not know the name of the hospital or the exact date. She was able to recall 3/3 words immediately, but could only remember 1/3 words in 1 minute and 0/3 words in 3 minutes. She was unable to tell me who the present president was and who prior presidents were. Her mathematical skills were impaired. Her visuospatial function was also impaired. SPEECH: She had moderate dysarthria. LANGUAGE: She had an anterior greater than posterior aphasia and significant anomia. CRANIAL NERVE EXAMINATION: II: She had a right visual field cut on confrontation testing. III, IV & : External ocular movements were full and the pupils 3 mm in diameter, equal, round, regular, and reactive to light. V: She had normal facial sensations and the temporales, masseters, and pterygoids functioned normally. VII: She had right VII central facial paresis. VIII: She was able to hear well bilaterally and had no nystagmus. IX: The palate moved symmetrically on phonation. X: She had no hoarseness of voice. XI: The sternocleidomastoids and trapezii functioned normally. XII: The tongue was in the midline without any fasciculations or atrophy. MOTOR SYSTEM: The tone was increased with spasticity on the right side and was normal on the left side. Examination of muscle mass revealed wasting of the right upper and lower extremities. Examination of power revealed G 5/5 power on the left side. On the right side, she had G 0/5 power in the upper extremity; G 4/5 in the quadriceps, hamstrings , and iliopsoas; G 1/5 in the ankle dorsiflexors and plantar flexors, and toe flexors and toe extensors. SENSORY EXAMINATION: She complained of altered sensations over her entire right body. REFLEXES: 3+ on the right and 2+ on the left at the biceps, triceps, brachioradialis, and knees; 2++ on the right and 1+ on the left at the ankles. The plantar response was extensor on the right and flexor on the left. COORDINATION: She performed well on [id number]-yf-nywv and vtqk-hl-dyae testing on the left side. She was unable to perform on the right side. STANCE: She stood up independently. GAIT: She walked independently with a right hemiparetic gait. Impression/Recommendations Diagnostic Impression 1. Ms. Vijaya Bailon is a 52-year-old, right-handed, lady, with a history of head trauma at age 25, when a viridiana was inserted into her left scientologist. She needed surgery for that and has since had seizures. She is unable to describe the seizures well, however, they most probably do become generalized seizures frequently. 2. She feels well. She feels she is back to her normal self. She has had no further seizures. She continues to be cognitively impoverished. She continues to have an aphasia. 3. On neurological examination, at this time, she is disoriented to place and exact date, has problems with recent and remote memory, visuospatial function, and higher cognitive function. She has an anterior greater than posterior aphasia, right visual field deficit, right VII central facial paresis, right upper extremity plegia, right lower extremity paresis, right hemisensory deficit , pathologically brisk right deep tendon reflexes with extensor plantar response on the right side, and right hemiparetic gait. 4. The CT scan of the brain without contrast reveals a significant amount of encephalomalacia in the left frontotemporoparietal area and in addition, she also has a moderate-sized mass in the left temporal area, most probably a meningioma. 5. Laboratory data reveal a relatively normal CBC, relatively normal chemistry panel, normal TSH, mildly abnormal urinalysis with 1+ leukocyte esterase, 0-2 red blood cells, and 10-15 white blood cells per high-power field. Her toxicology screen is positive for cocaine. She also has a subtherapeutic phenytoin level at 9.8 and borderline therapeutic valproic acid level at 52. 6. The patient's history and neurological examination are most compatible with possible focal seizures with secondary generalization. 7. Her breakthrough seizures are most probably due to low antiseizure medicine levels and in addition, the use of alcohol, cocaine, and methamphetamine. 8. The left temporal mass is most probably a meningioma. Recommendations 1. Continue present management. 2. She was again instructed on the basics of seizure hygiene. 3. She was told to stop using alcohol, tobacco, and illicit drugs. 4. Continue Depakote 750 mg q 12 hours. 5. Continue Dilantin 400 mg q HS. 6. Follow up with neurologist of choice on a regular basis. Ana Luisa Anderson M.D., M.S.P.Sushila. ANA LUISA ANDERSON Oct 14, 2017 17:08
[2017-10-14] MEDS: Phenytoin 100mg cap ORAL SCH (20:09)
[2017-10-14] MEDS: Atorvastatin 20mg tab ORAL SCH (20:09)
[2017-10-15] VITALS (7 sets, daily range): BP systolic 98–117; BP diastolic 54–74
[2017-10-15] MEDS: Depakote ER 500mg tab ORAL SCH ×2 (08:14→22:55)
[2017-10-15] MEDS: Oxybutynin 5mg tab ORAL SCH ×2 (08:15→17:44)
[2017-10-15] MEDS: Propranolol 10mg tab ORAL SCH ×2 (08:16→17:44)
[2017-10-15] MEDS: Metoprolol Succinate XL 25mg tab ORAL SCH (08:16)
--- NOTE | 2017-10-15 13:10 | General Progress Note ---
Assessment/Plan Status: stable, progressing Assessment/Plan Bipolar d/o cont seroquel not a dts dc zyprexa Subjective Date patient seen: Oct 15, 2017 Neurologic/Psychiatric: Reports: anxiety, depressed, emotional problems Allergies: Coded Allergies: PENICILLINS (Verified Allergy, Unknown, 10/11/17) Objective Last 24 Hour Vital Signs Date Time Temp Pulse Resp B/P (MAP) Pulse Ox O2 Delivery O2 Flow Rate FiO2 10/15/17 12:00 97.7 81 16 98/58 (71) 95 97.7 10/15/17 09:00 Room Air 10/15/17 08:16 83 117/62 10/15/17 08:16 83 117/62 10/15/17 08:00 81 10/15/17 08:00 98.2 83 20 117/62 (80) 95 98.2 10/15/17 04:00 97.6 75 18 109/64 (79) 97 97.6 10/15/17 04:00 72 10/15/17 00:00 97.3 80 16 102/64 (77) 97 97.3 10/15/17 00:00 76 10/14/17 21:00 Room Air 10/14/17 20:00 81 10/14/17 20:00 97.8 90 16 94/50 (65) 98 97.8 10/14/17 17:25 98.6 78 18 105/61 (76) 98 98.6 10/14/17 17:22 78 105/61 10/14/17 16:00 83 10/14/17 15:25 98.6 85 18 113/79 (90) 98 98.6 Intake and Output 10/14/17 10/15/17 19:00 07:00 Intake Total 1060 ml 120 ml Balance 1060 ml 120 ml Intake Oral 1060 ml 120 ml # Voids 4 Height (Feet): 5 Height (Inches): 4.00 Weight (Pounds): 164 General Appearance: no apparent distress, alert Neurologic: depressed affect Regulo Grant MD Oct 15, 2017 13:10
--- NOTE | 2017-10-15 15:11 | General Progress Note ---
Assessment/Plan Status: progressing Assessment/Plan continue neuro checks Neurology consulted for seizures- continue Depakote Psychiatry consult; continue home meds for now check TSH given h/o hypothyroidism; continue levothyroxine- normal continue atorvastatin continue metoprolol for HTN; goal SBP<160 No significant edema on CT so will hold dexamethasone for now May need transfer to higher level of care given intracranial mass DVT Prophylaxis: scd Code status: full Hospital Classification declaration: Based on this initial evaluation, and depending on the patient's clinical course, I anticipate that this patient will require hospitalization for 2-3 days. Disposition: Once the patient is stable to leave the hospital, I anticipate the patient will likely be discharged to the following environment:Home with HH vs SNF I spent 45 minutes on this patient's case, and 23 minutes was dedicated to counseling and/or care coordination. Time of note may not reflect time of encounter. Subjective Date patient seen: Oct 15, 2017 Time patient seen: 15:22 ROS Limited/Unobtainable: No Constitutional: Reports: weakness HEENT: Reports: no symptoms Cardiovascular: Reports: no symptoms Respiratory: Reports: no symptoms Gastrointestinal/Abdominal: Reports: nausea, poor appetite, poor fluid intake Genitourinary: Reports: no symptoms Neurologic/Psychiatric: Reports: headache Endocrine: Reports: no symptoms Hematologic/Lymphatic: Reports: no symptoms Allergies: Coded Allergies: PENICILLINS (Verified Allergy, Unknown, 10/11/17) All Systems: reviewed and negative except above Subjective No acute events overnight Chart reviewed by me Patient with increasing PO intake Headache improving No further seizures Objective Last 24 Hour Vital Signs Date Time Temp Pulse Resp B/P (MAP) Pulse Ox O2 Delivery O2 Flow Rate FiO2 10/15/17 12:00 97.7 81 16 98/58 (71) 95 97.7 10/15/17 09:00 Room Air 10/15/17 08:16 83 117/62 10/15/17 08:16 83 117/62 10/15/17 08:00 81 10/15/17 08:00 98.2 83 20 117/62 (80) 95 98.2 10/15/17 04:00 97.6 75 18 109/64 (79) 97 97.6 10/15/17 04:00 72 10/15/17 00:00 97.3 80 16 102/64 (77) 97 97.3 8/29/18 00:00 76 10/14/17 21:00 Room Air 10/14/17 20:00 81 10/14/17 20:00 97.8 90 16 94/50 (65) 98 97.8 10/14/17 17:25 98.6 78 18 105/61 (76) 98 98.6 10/14/17 17:22 78 105/61 10/14/17 16:00 83 10/14/17 15:25 98.6 85 18 113/79 (90) 98 98.6 Intake and Output 10/14/17 10/15/17 19:00 07:00 Intake Total 1060 ml 120 ml Balance 1060 ml 120 ml Intake Oral 1060 ml 120 ml # Voids 4 Height (Feet): 5 Height (Inches): 4.00 Weight (Pounds): 164 General Appearance: no apparent distress, alert EENT: PERRL/EOMI, normal ENT inspection, TMs normal, pharynx normal Neck: non-tender, supple Cardiovascular: normal peripheral pulses, normal rate, regular rhythm Respiratory/Chest: chest wall non-tender, lungs clear Abdomen: normal bowel sounds, non tender, soft Pelvis: normal external exam Extremities: normal range of motion Edema: no edema noted Arm (L), no edema noted Arm (R) Neurologic: corrections counselor II-XII grossly normal Skin: normal pigmentation, warm/dry Lymphatic: normal anterior cervical (L), normal anterior cervical (R) John Suero MD Oct 15, 2017 15:11
--- NOTE | 2017-10-15 15:55 | Neurology Progress Note ---
Interim History Interim History Interim History Ms. Bailon feels very well. She feels she is back to her normal self. She has had no further seizures. She continues to be cognitively impoverished. She continues to have an aphasia. She is eager to go home. Review of Systems Neuro Review of Systems Benign. Objective Physical Exam Last Vital Signs Date Time Temp Pulse Resp B/P (MAP) Pulse Ox O2 Delivery O2 Flow Rate FiO2 10/15/17 12:00 97.7 81 16 98/58 (71) 95 97.7 10/15/17 09:00 Room Air Neurologic Exam Objective PHYSICAL EXAMINATION: GENERAL: She is a well-developed, well-nourished, pleasant lady, sitting up at the edge of her bed, in no acute distress. HEAD: Normocephalic with left temporoparietal craniotomy defect. EENT: Examination benign. NECK: No neck rigidity was observed. NEUROLOGICAL EXAMINATION: MENTAL STATUS EXAMINATION: She was awake and alert. She was oriented to self, hospital, and September 2017. She did not know the name of the hospital or the exact date. She was able to recall 3/3 words immediately, but could only remember 1/3 words in 1 minute and 0/3 words in 3 minutes. She was unable to tell me who the present president was and who prior presidents were. Her mathematical skills were impaired. Her visuospatial function was also impaired. SPEECH: She had moderate dysarthria. LANGUAGE: She had an anterior greater than posterior aphasia and significant anomia. CRANIAL NERVE EXAMINATION: II: She had a right visual field cut on confrontation testing. III, IV & : External ocular movements were full and the pupils 3 mm in diameter, equal, round, regular, and reactive to light. V: She had normal facial sensations and the temporales, masseters, and pterygoids functioned normally. VII: She had right VII central facial paresis. VIII: She was able to hear well bilaterally and had no nystagmus. IX: The palate moved symmetrically on phonation. X: She had no hoarseness of voice. XI: The sternocleidomastoids and trapezii functioned normally. XII: The tongue was in the midline without any fasciculations or atrophy. MOTOR SYSTEM: The tone was increased with spasticity on the right side and was normal on the left side. Examination of muscle mass revealed wasting of the right upper and lower extremities. Examination of power revealed G 5/5 power on the left side. On the right side, she had G 0/5 power in the upper extremity; G 4/5 in the quadriceps, hamstrings , and iliopsoas; G 1/5 in the ankle dorsiflexors and plantar flexors, and toe flexors and toe extensors. SENSORY EXAMINATION: She complained of altered sensations over her entire right body. REFLEXES: 3+ on the right and 2+ on the left at the biceps, triceps, brachioradialis, and knees; 2++ on the right and 1+ on the left at the ankles. The plantar response was extensor on the right and flexor on the left. COORDINATION: She performed well on [id number] and [id number] testing on the left side. She was unable to perform on the right side. STANCE: She stood up independently. GAIT: She walked independently with a right hemiparetic gait. Impression/Recommendations Diagnostic Impression 1. Ms. Vijaya Bailon is a 52-year-old, right-handed, lady, with a history of head trauma at age 25, when a viridiana was inserted into her left adventist. She needed surgery for that and has since had seizures. She is unable to describe the seizures well, however, they most probably do become generalized seizures frequently. 2. She feels well. She feels she is back to her normal self. She has had no further seizures. She continues to be cognitively impoverished. She continues to have an aphasia. She is eager to go home. 3. On neurological examination, at this time, she is disoriented to place and exact date, has problems with recent and remote memory, visuospatial function, and higher cognitive function. She has an anterior greater than posterior aphasia, right visual field deficit, right VII central facial paresis, right upper extremity plegia, right lower extremity paresis, right hemisensory deficit , pathologically brisk right deep tendon reflexes with extensor plantar response on the right side, and right hemiparetic gait. 4. The CT scan of the brain without contrast reveals a significant amount of encephalomalacia in the left frontotemporoparietal area and in addition, she also has a moderate-sized mass in the left temporal area, most probably a meningioma. 5. Laboratory data reveal a relatively normal CBC, relatively normal chemistry panel, normal TSH, mildly abnormal urinalysis with 1+ leukocyte esterase, 0-2 red blood cells, and 10-15 white blood cells per high-power field. Her toxicology screen is positive for cocaine. She also has a subtherapeutic phenytoin level at 9.8 and borderline therapeutic valproic acid level at 52. 6. The patient's history and neurological examination are most compatible with possible focal seizures with secondary generalization. 7. Her breakthrough seizures are most probably due to low antiseizure medicine levels and in addition, the use of alcohol, cocaine, and methamphetamine. 8. The left temporal mass is most probably a meningioma. Recommendations 1. Continue present management. 2. Follow rules of seizure hygiene. 3. Stop using alcohol, tobacco, and illicit drugs. 4. Continue Depakote 750 mg q 12 hours. 5. Continue Dilantin 400 mg q HS. 6. Follow up with neurologist of choice on a regular basis. Ana Luisa Anderson M.D., M.S.P.Sushila. ANA LUISA ANDERSON Oct 15, 2017 15:55
[2017-10-15] MEDS ORDERED: Norco 5mg/325mg tab ORAL PRN (22:15)
[2017-10-15] MEDS: Phenytoin 100mg cap ORAL SCH (22:54)
[2017-10-15] MEDS: Atorvastatin 20mg tab ORAL SCH (22:54)
[2017-10-16] VITALS: BP 98/61
[2017-10-16 03:55] VITALS: BP 99/61
[2017-10-16 08:09] VITALS: BP 107/60
[2017-10-16] MEDS: Oxybutynin 5mg tab ORAL SCH ×2 (08:54→17:47)
[2017-10-16] MEDS: Depakote ER 500mg tab ORAL SCH ×2 (08:55→20:28)
[2017-10-16] MEDS: Propranolol 10mg tab ORAL SCH ×2 (09:00→18:00)
[2017-10-16] MEDS: Metoprolol Succinate XL 25mg tab ORAL SCH (09:00)
--- NOTE | 2017-10-16 09:52 | Neurology Progress Note ---
Interim History Interim History Interim History Ms. Bailon feels very well. She feels she is back to her normal self. She has had no further seizures. She continues to be cognitively impoverished. She continues to have an aphasia. She feels steady on her feet and has been walking around. She slept well last night. She is eating well. She is eager to go home. Review of Systems Neuro Review of Systems Benign. Objective Physical Exam Last Vital Signs Date Time Temp Pulse Resp B/P (MAP) Pulse Ox O2 Delivery O2 Flow Rate FiO2 10/16/17 09:00 Room Air 10/16/17 09:00 81 107/60 10/16/17 08:09 97.9 20 95 97.9 Neurologic Exam Objective PHYSICAL EXAMINATION: GENERAL: She is a well-developed, well-nourished, pleasant lady, sitting up at the edge of her bed, in no acute distress. HEAD: Normocephalic with left temporoparietal craniotomy defect. EENT: Examination benign. NECK: No neck rigidity was observed. NEUROLOGICAL EXAMINATION: MENTAL STATUS EXAMINATION: She was awake and alert. She was oriented to self, hospital, and September 2017. She did not know the name of the hospital or the exact date. She was able to recall 3/3 words immediately, but could only remember 1/3 words in 1 minute and 0/3 words in 3 minutes. She was unable to tell me who the present president was and who prior presidents were. Her mathematical skills were impaired. Her visuospatial function was also impaired. SPEECH: She had moderate dysarthria. LANGUAGE: She had an anterior greater than posterior aphasia and significant anomia. CRANIAL NERVE EXAMINATION: II: She had a right visual field cut on confrontation testing. III, IV & : External ocular movements were full and the pupils 3 mm in diameter, equal, round, regular, and reactive to light. V: She had normal facial sensations and the temporales, masseters, and pterygoids functioned normally. VII: She had right VII central facial paresis. VIII: She was able to hear well bilaterally and had no nystagmus. IX: The palate moved symmetrically on phonation. X: She had no hoarseness of voice. XI: The sternocleidomastoids and trapezii functioned normally. XII: The tongue was in the midline without any fasciculations or atrophy. MOTOR SYSTEM: The tone was increased with spasticity on the right side and was normal on the left side. Examination of muscle mass revealed wasting of the right upper and lower extremities. Examination of power revealed G 5/5 power on the left side. On the right side, she had G 0/5 power in the upper extremity; G 4/5 in the quadriceps, hamstrings , and iliopsoas; G 1/5 in the ankle dorsiflexors and plantar flexors, and toe flexors and toe extensors. SENSORY EXAMINATION: She complained of altered sensations over her entire right body. REFLEXES: 3+ on the right and 2+ on the left at the biceps, triceps, brachioradialis, and knees; 2++ on the right and 1+ on the left at the ankles. The plantar response was extensor on the right and flexor on the left. COORDINATION: She performed well on [id number]-[id number] and bvzy-vv-[id number] testing on the left side. She was unable to perform on the right side. STANCE: She stood up independently. GAIT: She walked independently with a right hemiparetic gait. Impression/Recommendations Diagnostic Impression 1. Ms. Vijaya Bailon is a 52-year-old, right-handed, lady, with a history of head trauma at age 25, when a viridiana was inserted into her left alevism. She needed surgery for that and has since had seizures. She is unable to describe the seizures well, however, they most probably do become generalized seizures frequently. 2. She feels well. She feels she is back to her normal self. She has had no further seizures. She continues to be cognitively impoverished. She continues to have an aphasia. She is eager to go home. 3. On neurological examination, at this time, she is disoriented to place and exact date, has problems with recent and remote memory, visuospatial function, and higher cognitive function. She has an anterior greater than posterior aphasia, right visual field deficit, right VII central facial paresis, right upper extremity plegia, right lower extremity paresis, right hemisensory deficit , pathologically brisk right deep tendon reflexes with extensor plantar response on the right side, and right hemiparetic gait. 4. The CT scan of the brain without contrast reveals a significant amount of encephalomalacia in the left frontotemporoparietal area and in addition, she also has a moderate-sized mass in the left temporal area, most probably a meningioma. 5. Laboratory data reveal a relatively normal CBC, relatively normal chemistry panel, normal TSH, mildly abnormal urinalysis with 1+ leukocyte esterase, 0-2 red blood cells, and 10-15 white blood cells per high-power field. Her toxicology screen is positive for cocaine. She also has a subtherapeutic phenytoin level at 9.8 and borderline therapeutic valproic acid level at 52. 6. The patient's history and neurological examination are most compatible with possible focal seizures with secondary generalization. 7. Her breakthrough seizures are most probably due to low antiseizure medicine levels and in addition, the use of alcohol, cocaine, and methamphetamine. She has been seizure free during her hospitalization. 8. The left temporal mass is most probably a meningioma. Recommendations 1. Continue present management. 2. Follow rules of seizure hygiene. 3. Stop using alcohol, tobacco, and illicit drugs. 4. Continue Depakote 750 mg q 12 hours. 5. Continue Dilantin 400 mg q HS. 6. Follow up with neurologist of choice on a regular basis. Cristian Anderson M.D., M.S.P.H. CRISTIAN ANDERSON Oct 16, 2017 09:52
[2017-10-16 11:38] VITALS: BP 93/57
--- NOTE | 2017-10-16 13:24 | General Progress Note ---
Assessment/Plan Status: stable, progressing Assessment/Plan Bipolar d/o cont seroquel not a dts dc zyprexa Subjective Date patient seen: Oct 16, 2017 Neurologic/Psychiatric: Reports: anxiety, depressed Allergies: Coded Allergies: PENICILLINS (Verified Allergy, Unknown, 10/11/17) Objective Last 24 Hour Vital Signs Date Time Temp Pulse Resp B/P (MAP) Pulse Ox O2 Delivery O2 Flow Rate FiO2 10/16/17 11:38 98.0 84 20 93/57 (69) 95 98.0 10/16/17 09:00 Room Air 10/16/17 09:00 81 107/60 10/16/17 09:00 81 107/60 10/16/17 08:09 97.9 81 20 107/60 (76) 95 97.9 10/16/17 03:55 97.3 86 17 99/61 (74) 95 97.3 86 10/16/17 00:00 97.8 81 18 98/61 (73) 96 97.8 10/15/17 21:00 Room Air 10/15/17 19:40 97.9 86 18 98/63 (75) 95 97.9 86 10/15/17 17:44 84 101/54 10/15/17 16:33 97.9 84 101/54 (70) 97.9 10/15/17 16:00 97.0 90 16 113/74 (87) 97 97.0 Intake and Output 10/15/17 10/16/17 19:00 07:00 Intake Total 240 ml Balance 240 ml Intake Oral 240 ml # Voids 1 3 # Bowel Movements 1 Height (Feet): 5 Height (Inches): 4.00 Weight (Pounds): 164 General Appearance: no apparent distress, alert Neurologic: oriented x 3, responsive, depressed affect Regulo Grant MD Oct 16, 2017 13:24
[2017-10-16] MEDS: Docusate 100mg cap ORAL SCH ×2 (14:02→17:47)
[2017-10-16 15:48] VITALS: BP 109/70
[2017-10-16 19:38] VITALS: BP 97/60
[2017-10-16] MEDS: Atorvastatin 20mg tab ORAL SCH (20:28)
[2017-10-16] MEDS: Phenytoin 100mg cap ORAL SCH (20:28)
--- NOTE | 2017-10-16 22:26 | General Progress Note ---
Assessment/Plan Status: progressing Assessment/Plan continue neuro checks Neurology consulted for seizures- continue Depakote at increased dose Psychiatry consult; continue home meds for now TSH wnl; continue levothyroxine continue atorvastatin continue metoprolol for HTN; goal SBP<160 No significant edema on CT so will hold dexamethasone for now May not need transfer to higher level of care given intracranial mass given lack of vasogenic edema and midline shift- Neuro recs appreciated DVT Prophylaxis: scd's Code status: full Hospital Classification declaration: Based on this initial evaluation, and depending on the patient's clinical course, I anticipate that this patient will require hospitalization for 2-3 days. Disposition: Once the patient is stable to leave the hospital, I anticipate the patient will likely be discharged to the following environment:Home with HH vs SNF I spent 45 minutes on this patient's case, and 23 minutes was dedicated to counseling and/or care coordination. Time of note may not reflect time of encounter. Subjective Date patient seen: Oct 16, 2017 ROS Limited/Unobtainable: No Constitutional: Reports: no symptoms HEENT: Reports: no symptoms Cardiovascular: Reports: no symptoms Respiratory: Reports: no symptoms Gastrointestinal/Abdominal: Reports: no symptoms Genitourinary: Reports: no symptoms Neurologic/Psychiatric: Reports: headache Endocrine: Reports: no symptoms Hematologic/Lymphatic: Reports: no symptoms Allergies: Coded Allergies: PENICILLINS (Verified Allergy, Unknown, 10/11/17) All Systems: reviewed and negative except above Subjective No acute events overnight Chart reviewed by me Patient having mild headache today No further seizures Objective Last 24 Hour Vital Signs Date Time Temp Pulse Resp B/P (MAP) Pulse Ox O2 Delivery O2 Flow Rate FiO2 10/16/17 21:55 Room Air 10/16/17 19:38 97.3 87 17 97/60 (72) 95 97.3 10/16/17 18:00 90 109/70 10/16/17 15:48 97.7 90 20 109/70 (83) 96 97.7 10/16/17 11:38 98.0 84 20 93/57 (69) 95 98.0 10/16/17 09:00 Room Air 10/16/17 09:00 81 107/60 10/16/17 09:00 81 107/60 10/16/17 08:09 97.9 81 20 107/60 (76) 95 97.9 10/16/17 03:55 97.3 86 17 99/61 (74) 95 97.3 86 10/16/17 00:00 97.8 81 18 98/61 (73) 96 97.8 Intake and Output 10/15/17 10/16/17 19:00 07:00 Intake Total 240 ml Balance 240 ml Intake Oral 240 ml # Voids 1 3 # Bowel Movements 1 Height (Feet): 5 Height (Inches): 4.00 Weight (Pounds): 164 General Appearance: no apparent distress, alert, thin EENT: PERRL/EOMI, normal ENT inspection, TMs normal Neck: non-tender, supple Cardiovascular: normal peripheral pulses, normal rate, regular rhythm Respiratory/Chest: chest wall non-tender, lungs clear Abdomen: normal bowel sounds, non tender, soft Pelvis: normal external exam Extremities: normal range of motion, non-tender Edema: no edema noted Arm (L), no edema noted Arm (R) Edema: trace edema Neurologic: throat cutter II-XII grossly normal, no motor/sensory deficits Skin: normal pigmentation, warm/dry Lymphatic: normal anterior cervical (L), normal anterior cervical (R) John Suero MD Oct 16, 2017 22:26
[2017-10-17 00:28] VITALS: BP 96/58
[2017-10-17 04:41] VITALS: BP 106/70
[2017-10-17 08:19] VITALS: BP 94/61
[2017-10-17] MEDS: Docusate 100mg cap ORAL SCH ×2 (08:22→12:20)
[2017-10-17] MEDS: Metoprolol Succinate XL 25mg tab ORAL SCH (08:22)
[2017-10-17] MEDS: Oxybutynin 5mg tab ORAL SCH (08:22)
[2017-10-17] MEDS: Depakote ER 500mg tab ORAL SCH (08:22)
[2017-10-17] MEDS: Propranolol 10mg tab ORAL SCH (08:23)
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
[2017-10-17] MEDS ORDERED: PHENYTOIN SODI100 MG ORAL (15:00)
[2017-10-17] MEDS ORDERED: DEPAKOTE ER500 MG ORAL (15:00)
--- NOTE | 2017-10-17 15:01 | Discharge Instructions ---
Discharge Instructions Discharge Instructions Follow up with: your PMD for neurosurgery appointment. Stop Zyprexa. Cont. phenytoin, depak Resume Normal Activity?: Yes For Congestive Heart Failure Reminder Report to your physician any weight gain of 5 pounds or more in one week. John Suero MD Oct 17, 2017 15:01
[2017-10-17 16:00] VITALS: BP 133/72
--- NOTE | 2017-10-17 19:57 | Discharge Summary ---
Discharge Summary Hospital Course Date of Admission Oct 11, 2017 at 15:17 Date of Discharge Oct 17, 2017 at 17:00 Admitting Diagnosis Uncontrolled seizure Reason for Hospitalization: Status epilipeticus HPI Vijaya Bailon is a 52 year old female who was admitted on Oct 11, 2017 at 15: 17 for Uncontrolled Seizures She was found to have a significant mass on CT head and admitted Consultations Neurology Psychiatry Hospital Course Patient was admitted given concern for seizures and intracranial mass Neurology consulted- antiepileptic medications increased and adjusted Given stability of mass on CT head (no mass effect, shift or vasogenic edema) it was thought that the mass was likely meningioma and no acute intervention needed Neurology recommended elective resection if persistent seizures Patient's symptoms stabilized and she was deemed safe for discharge Discharge Medications Changed Medications: Divalproex Sodium* (Depakote Er*) 500 Mg Tab.er.24h 750 MG ORAL EVERY 12 HOURS, #60 TAB (Changed from: 500 MG) Phenytoin Sodium Extended* (Phenytoin Sodium Extended*) 100 Mg Capsule 400 MG ORAL BEDTIME, #60 CAP 0 Refills (Changed from: 200 MG; TWICE A DAY) Continued Medications: Atorvastatin Calcium* (Atorvastatin Calcium*) 20 Mg Tablet 20 MG ORAL BEDTIME, TAB (This prescription has been renewed) Fenofibrate (Fenofibrate) 54 Mg Tablet 54 MG ORAL DAILY, #30 TAB 0 Refills (This prescription has been renewed) Gabapentin* (Gabapentin*) 300 Mg Capsule 300 MG ORAL DAILY, CAP 0 Refills (This prescription has been renewed) Levothyroxine Sodium* (Levothyroxine Sodium*) 75 Mcg Tablet 75 MCG ORAL DAILY, TAB (This prescription has been renewed) Take in the morning on an empty stomach, at least 30 minutes before food. Metoprolol Succinate* (Metoprolol Succinate*) 25 Mg Tab.er.24h 25 MG ORAL DAILY, TAB (This prescription has been renewed) Propranolol Hcl* (Inderal*) 10 Mg Tablet 10 MG ORAL BID, #90 TAB 0 Refills (This prescription has been renewed) Quetiapine Fumarate* (Seroquel*) 100 Mg Tablet 300 MG ORAL TWICE A DAY, TAB (This prescription has been renewed) Discontinued Medications: Olanzapine* (Zyprexa*) 5 Mg Tablet 5 MG ORAL BID, TAB Discharge Condition Upon Discharge: stable Discharge Disposition Patient [facility] I spent 40 minutes conducting, performing and coordinating discharge activities for this patient Discharge Diagnoses: (1) Intracranial mass (2) Seizures, generalized convulsive Discharge Instructions Discharge Instructions Follow up with: your PMD for neurosurgery appointment. Stop Zyprexa. Cont. phenytoin, John Rucker MD Oct 17, 2017 19:57
--- NOTE | 2017-10-18 22:54 | General Progress Note ---
Assessment/Plan Status: stable Assessment/Plan Bipolar d/o cont seroquel not a dts dc zyprexa Subjective Date patient seen: Oct 17, 2017 Neurologic/Psychiatric: Reports: anxiety, depressed, emotional problems Allergies: Coded Allergies: PENICILLINS (Verified Allergy, Unknown, 10/11/17) Objective Intake and Output 10/17/17 10/18/17 19:00 07:00 Intake Total 480 ml Balance 480 ml Intake Oral 480 ml # Voids 3 Height (Feet): 5 Height (Inches): 4.00 Weight (Pounds): 164 General Appearance: no apparent distress, alert Neurologic: oriented x 3, responsive, depressed affect Regulo Grant MD Oct 18, 2017 22:54
== END 2017-10-17 17:00 | disposition home or self-care (01) | DRG 101 ==
LOC: EDBD 14:36 → EMR 15:10 → 2E 15:17 → EDBEDREQ 16:29 → 4W 10-15 16:30
DX: G40.109 Localization-related (focal) (partial) symptomatic epilepsy and epileptic syndromes with simple partial seizures, not intractable, without status epilepticus (principal); R47.01 Aphasia; R22.0 Localized swelling, mass and lump, head; E03.9 Hypothyroidism, unspecified; F31.9 Bipolar disorder, unspecified; F17.210 Nicotine dependence, cigarettes, uncomplicated; I10 Essential (primary) hypertension; Z86.73 Personal history of transient ischemic attack (TIA), and cerebral infarction without residual deficits; Z88.0 Allergy status to penicillin
CPT/HCPCS: 36415; 70450; 71045; 80053; 80164; 80185; 80307; 80329; 81003; 82550; 83735; 83880; 84443; 84484; 85025; 87086; 93005; 99285; J1165